=== PATIENT | female | born 1965 | race Caucasian/White ===

== ENCOUNTER 2019-10-16 11:08 | Outpatient (REF) | payer MEDICARE, MEDICAID, SELFPAY ==
[2019-10-16 12:28] LABS: Abs Immature Grans 0.02 k/cumm (0.0-0.09); Absolute Basophil Count 0.04 k/cumm (0.0-0.2); Absolute Eosinophil Count 0.14 k/cumm (0.0-0.7); Absolute Lymphocyte Count 2.41 k/cumm (1.2-3.4); Absolute Monocyte Count 0.49 k/cumm (0.11-0.7); Absolute Neutrophil Count 7.18 k/cumm (1.2-6.7); Basophils % 0.4; Eosinophils % 1.4; HCT 46.6 % (36.0-46.0); HGB 15.6 g/dL (12.0-15.5); Immature Grans % 0.2; Lymphocytes % 23.4; Mean Corp. HGB Concentration 33.5 g/dL (32.0-36.0); Mean Corpuscular Hemoglobin 34.4 pg (27.0-33.0); Mean Corpuscular Volume 102.6 fL (80-95); Mean Platelet Volume 10.7 fL (8.0-11.0); Monocytes % 4.8; Neutrophils % 69.8; Platelet Count 302 x1000/uL (130-400); RBC 4.54 m/cumm (4.00-5.20); RBC Distribution Width 14.5 % (11.7-14.6); White Blood Cell Count 10.28 k/cumm (4.4-10.8)
[2019-10-16 12:56] LABS: ALT 62 U/L (14-59); AST 49 U/L (15-37); Albumin 3.7 g/dL (3.4-5.0); Alkaline Phosphatase 77 U/L (46-116); Anion Gap 15.5 mmol/L (3-11); BUN 11 mg/dL (7-18); Bilirubin, Total 0.6 mg/dL (0.2-1.0); CO2 24.5 mmol/L (21.0-32.0); CREATININE 0.74 mg/dL (0.55-1.02); Calcium 9.6 mg/dL (8.5-10.1); Calculated LDL 167 mg/dL; Chloride 99 mmol/L (98-107); Cholesterol 239 mg/dL (<200); Glucose 125 mg/dL (74-106); HDL Cholesterol 43 mg/dL (40-60); Potassium 4.5 mmol/L (3.5-5.1); Sodium 139 mmol/L (136-145); Total Protein 7.5 g/dL (6.4-8.2); Triglyceride 149 mg/dL (<150)
== END 2019-10-16 11:28 ==
LOC: NCHCN 11:08
PROVIDERS: PCP Specialist/Technologist Athletic Trainer; Visit Provider Specialist/Technologist Athletic Trainer
DX: L65.9 Nonscarring hair loss, unspecified (principal); F41.8 Other specified anxiety disorders; R31.0 Gross hematuria; Z00.00 Encounter for general adult medical examination without abnormal findings
CPT/HCPCS: 80053; 80061; 84443; 85025; 87086

== ENCOUNTER 2020-07-02 18:13 | Outpatient (REF) | payer MEDICARE, MEDICAID, SELFPAY | END 2020-07-02 18:33 | LOC: NCHCN 18:13 | PROVIDERS: PCP Specialist/Technologist Athletic Trainer; Visit Provider Family Medicine | DX: K70.30 Alcoholic cirrhosis of liver without ascites (principal); F41.8 Other specified anxiety disorders; Z53.8 Procedure and treatment not carried out for other reasons | CPT/HCPCS: 80053; 85025 ==

== ENCOUNTER 2020-08-20 13:57 | Outpatient (REF) | payer MEDICARE, MEDICAID, SELFPAY ==
[2020-08-20 22:05] LABS: HCT 50.9 % (36.0-46.0); HGB 16.6 g/dL (11.2-15.7); MCHC 32.6 % (32.0-36.0); MCV 98.1 fL (80-95); Platelet Count 146 10^3/uL (130-400); RBC 5.19 10^6/uL (3.93-5.22); RDW 13.4 % (11.7-14.6); RDW-SD 48.7 fL; WBC 8.62 10^3/uL (4.4-10.8)
[2020-08-20 22:18] LABS: ALT 26 U/L (14-59); AST 20 U/L (15-37); Albumin 3.3 g/dL (3.4-5.0); Alkaline Phosphatase 84 U/L (46-116); Bilirubin, Total 0.5 mg/dL (0.2-1.0); Total Protein 7.4 g/dL (6.4-8.2)
== END 2020-08-20 14:17 ==
LOC: NCHCN 13:57
PROVIDERS: PCP Specialist/Technologist Athletic Trainer; Visit Provider Family Medicine
DX: K70.30 Alcoholic cirrhosis of liver without ascites (principal)
CPT/HCPCS: 80076; 85027

== ENCOUNTER 2020-11-06 11:52 | Outpatient (REF) | payer MEDICARE, MEDICAID, SELFPAY ==
[2020-11-06 16:19] LABS: HCT 50.8 % (36.0-46.0); HGB 16.9 g/dL (11.2-15.7); MCH 30.5 pg (27.0-33.0); MCHC 33.3 % (32.0-36.0); MCV 91.5 fL (80-95); MPV 10.4 fL (8.0-11.0); Platelet Count 129 10^3/uL (130-400); RBC 5.55 10^6/uL (3.93-5.22); RDW 12.6 % (11.7-14.6); RDW-SD 42.6 fL; WBC 9.04 10^3/uL (4.4-10.8)
[2020-11-06 16:21] LABS: Anion Gap 7.9 mmol/L (3-11); BUN 15 mg/dL (7-18); CO2 29.1 mmol/L (21.0-32.0); CREATININE 0.82 mg/dL (0.55-1.02); Calcium 9.7 mg/dL (8.5-10.1); Chloride 101 mmol/L (98-107); Glucose 132 mg/dL (74-106); Potassium 4.1 mmol/L (3.5-5.1); Sodium 138 mmol/L (136-145)
[2020-11-06 16:47] LABS: Vitamin D 25 Total 47.2 ng/ml (30-100)
== END 2020-11-06 12:12 ==
LOC: NCHCN 11:52
PROVIDERS: PCP Specialist/Technologist Athletic Trainer; Visit Provider Family Medicine
DX: M25.552 Pain in left hip (principal); K70.30 Alcoholic cirrhosis of liver without ascites
CPT/HCPCS: 80048; 82306; 85027

== ENCOUNTER 2021-02-27 12:46 | Outpatient (REF) | payer MEDICARE, MEDICAID, SELFPAY ==
[2021-02-27 20:43] LABS: Abs Immature Grans 0.04 10^3/uL (0.0-0.06); Absolute Lymphocyte Count 3.04 10^3/uL (1.2-3.4); Absolute Monocyte Count 0.53 10^3/uL (0.1-0.8); Basophils % 0.3; Eosinophils % 5.2; HCT 53.2 % (36.0-46.0); HGB 17.8 g/dL (11.2-15.7); Immature Grans % 0.3; Lymphocytes % 26.2; MCH 30.4 pg (27.0-33.0); MCHC 33.5 % (32.0-36.0); MCV 90.8 fL (80-95); MPV 11.3 fL (8.0-11.0); Monocytes % 4.6; Neutrophils % 63.4; Nucleated RBC 0 %; Platelet Count 105 10^3/uL (130-400); RBC 5.86 10^6/uL (3.93-5.22); RDW 12.5 % (11.7-14.6); RDW-SD 41.2 fL; WBC 11.62 10^3/uL (4.4-10.8)
[2021-02-27 20:46] LABS: Absolute Basophil Count 0.03 10^3/uL (0.0-0.2); Absolute Neutrophil Count 7.37 10^3/uL (1.2-6.7)
[2021-02-27 21:13] LABS: ALT 18 U/L (14-59); AST 7 U/L (15-37); Albumin 3.6 g/dL (3.4-5.0); Alkaline Phosphatase 113 U/L (46-116); Anion Gap 7.9 mmol/L (3-11); BUN 21 mg/dL (7-18); Bilirubin, Total 0.2 mg/dL (0.2-1.0); CO2 27.1 mmol/L (21.0-32.0); CREATININE 0.9 mg/dL (0.55-1.02); Calcium 9.3 mg/dL (8.5-10.1); Calculated LDL 118 mg/dL (<100); Chloride 103 mmol/L (98-107); Cholesterol 168 mg/dL (<200); Glucose 136 mg/dL (74-106); HDL Cholesterol 28 mg/dL (40-60); Magnesium 1.6 mg/dL (1.8-2.4); Potassium 4.1 mmol/L (3.5-5.1); Sodium 138 mmol/L (136-145); TSH (W/Ref FT4) 3.11 uIU/mL (0.36-3.74); Total Protein 7.3 g/dL (6.4-8.2); Triglyceride 112 mg/dL (<150)
== END 2021-02-27 12:47 | disposition home or self-care (01) ==
LOC: NCHCN 12:46
PROVIDERS: PCP Specialist/Technologist Athletic Trainer; Visit Provider Family Medicine
DX: R53.81 Other malaise (principal); K70.30 Alcoholic cirrhosis of liver without ascites; R53.83 Other fatigue; R79.89 Other specified abnormal findings of blood chemistry
CPT/HCPCS: 80053; 80061; 83735; 84443; 85025

== ENCOUNTER 2022-04-19 14:03 | Outpatient (REF) | payer MEDICARE, MEDICAID, SELFPAY ==
[2022-04-19 20:52] LABS: Abs Immature Grans 0.03 10^3/uL (0.0-0.06); Absolute Basophil Count 0.05 10^3/uL (0.0-0.2); Absolute Eosinophil Count 0.18 10^3/uL (0.0-0.7); Absolute Lymphocyte Count 3.12 10^3/uL (1.2-3.4); Absolute Monocyte Count 0.46 10^3/uL (0.1-0.8); Absolute Neutrophil Count 5.25 10^3/uL (1.2-6.7); Basophils % 0.6; HCT 49.5 % (36.0-46.0); HGB 16.6 g/dL (11.2-15.7); Immature Grans % 0.3; Lymphocytes % 34.3; MCH 31.9 pg (27.0-33.0); MCHC 33.5 % (32.0-36.0); MCV 95 fL (80-95); Monocytes % 5.1; Neutrophils % 57.7; RBC 5.21 10^6/uL (3.93-5.22); RDW 12.8 % (11.7-14.6); RDW-SD 44.2 fL; WBC 9.09 10^3/uL (4.4-10.8)
[2022-04-19 21:14] LABS: Diff Comment PLT Morph Reviewed
[2022-04-19 21:26] LABS: ALT 31 U/L (14-59); AST 30 U/L (15-37); Albumin 3.6 g/dL (3.4-5.0); Alkaline Phosphatase 78 U/L (46-116); BUN 7 mg/dL (7-18); Bilirubin, Total 0.6 mg/dL (0.2-1.0); CREATININE 0.7 mg/dL (0.55-1.02); Calcium 9.7 mg/dL (8.5-10.1); Chloride 102 mmol/L (98-107); GGT 286 U/L (5-55); Glucose 94 mg/dL (74-106); Magnesium 1.3 mg/dL (1.8-2.4); PHOSPHORUS 2.7 mg/dL (2.6-4.7); Potassium 3.9 mmol/L (3.5-5.1); Sodium 138 mmol/L (136-145); TSH (W/Ref FT4) 2.38 uIU/mL (0.36-3.74)
== END 2022-04-19 14:04 | disposition home or self-care (01) ==
LOC: NCHCN 14:03
PROVIDERS: PCP Specialist/Technologist Athletic Trainer; Visit Provider Family Medicine
DX: F19.10 Other psychoactive substance abuse, uncomplicated (principal); F10.20 Alcohol dependence, uncomplicated; K70.30 Alcoholic cirrhosis of liver without ascites
CPT/HCPCS: 80053; 82977; 83735; 83986; 84100; 84443; 85025

== ENCOUNTER 2022-10-05 20:52 | Outpatient (REF) | payer OTHER, MEDICAID, SELFPAY ==
[2022-10-05 15:18] LABS: Abs Immature Grans 0.06 10^3/uL (0.0-0.06); Absolute Basophil Count 0.05 10^3/uL (0.0-0.2); Absolute Lymphocyte Count 4.27 10^3/uL (1.2-3.4); Absolute Monocyte Count 0.63 10^3/uL (0.1-0.8); Absolute Neutrophil Count 6.88 10^3/uL (1.2-6.7); Basophils % 0.4; Eosinophils % 1.7; HCT 42.5 % (36.0-46.0); HGB 13.7 g/dL (11.2-15.7); Immature Grans % 0.5; Lymphocytes % 35.3; MCH 31.8 pg (27.0-33.0); MCHC 32.2 % (32.0-36.0); MCV 99 fL (80-95); MPV 12.3 fL (8.0-11.0); Monocytes % 5.2; Neutrophils % 56.9; Platelet Count 148 10^3/uL (130-400); RBC 4.31 10^6/uL (3.93-5.22); RDW-SD 55.8 fL; WBC 12.09 10^3/uL (4.4-10.8)
[2022-10-05 15:20] LABS: Absolute Eosinophil Count 0.21 10^3/uL (0.0-0.7)
[2022-10-05 15:30] LABS: INR 1.4 (0.9-1.1); Prothrombin Time 13.5 sec (9.3-11.0)
[2022-10-05 15:41] LABS: ALT 51 U/L (14-59); AST 34 U/L (15-37); Albumin 3.6 g/dL (3.4-5.0); Alkaline Phosphatase 134 U/L (46-116); BUN 10 mg/dL (7-18); Bilirubin, Total 0.8 mg/dL (0.2-1.0); CREATININE 0.7 mg/dL (0.55-1.02); Calcium 9.3 mg/dL (8.5-10.1); Chloride 102 mmol/L (98-107); Estimated GFR 102.07 (mL/min/1.73m2); Glucose 88 mg/dL (74-106); Lipase 248 U/L (73-393); Sodium 138 mmol/L (136-145); Total Protein 7.4 g/dL (6.4-8.2)
[2022-10-05 15:51] LABS: ETHANOL BLOOD < 3.0 mg/dL (<10)
== END 2022-10-05 20:53 | disposition home or self-care (01) ==
LOC: NCHCN 20:52
PROVIDERS: PCP Specialist/Technologist Athletic Trainer; Visit Provider Family Medicine
DX: K70.30 Alcoholic cirrhosis of liver without ascites; F10.20 Alcohol dependence, uncomplicated; K85.20 Alcohol induced acute pancreatitis without necrosis or infection
CPT/HCPCS: 80053; 80307; 83690; 80320; 82140; 85025; 85610